=== PATIENT | female | born 1950 | race Caucasian/White ===

== ENCOUNTER 2019-04-19 08:50 | Day surgery (SDC) | payer OTHER ==
[~2019-04-19] VITALS: Ht 170.2 cm; Wt 81.3 kg
[~2019-04-19 08:50] MED LIST: CALCIT950 PO; MELATONIN
[2019-04-19] MEDS ORDERED: ASCO500 (09:04)
[2019-04-19] MEDS ORDERED: TOCO1000 (09:04)
[2019-04-19] MEDS ORDERED: ASPI81CH (09:05)
[2019-04-19] MEDS ORDERED: Calicum 500+D1 EACH PO (09:08)
--- NOTE | 2019-04-19 09:19 | NUR ---
History, Chart, Medications and Allergies reviewed before start of procedure. Patient confirms NPO status and agrees with scheduled surgery. REPORTS TAKING ALL OF COLON PREP WITH CLEAR RESULTS. PATIENT LEFT BILATERAL HEARING AIDES AT HOME. Patient States Post-Procedure ride home has been arranged with her , Ayden.
--- NOTE | 2019-04-19 09:40 | NUR ---
04/19/19 0940 Kolby Keller History, Chart, Medications and Allergies reviewed before start of procedure.MONITOR INTACT WITH CONTINUOUS PULSE OXIMETRY AND INTERMITTENT BP.3-LEAD EKG REVIEWED WITH PHYSICIAN PRIOR TO START OF PROCEDURE.O2 VIA N/C INTACT THROUGHOUT SEDATION/PROCEDURE. Patient confirms NPO status and agrees with scheduled surgery.PATIENT DETERMINED TO BE ASA APPROPRIATE FOR PROPOFOL SEDATION PRIOR TO START OF PROCEDURE BY DR. PHILLIPS.
--- NOTE | 2019-04-19 10:25 | NUR ---
RECEIVED REPORT FROM ENDO RN (YANNICK). PT IS AWAKE. AT BEDSIDE. VSS.
--- NOTE | 2019-04-19 10:33 | NUR ---
DR PHILLIPS CAME AND SPOKE TO PT. PT SITTING UP AND DRINKING WATER.
--- NOTE | 2019-04-19 10:54 | NUR ---
PT DRESSED AND HAS ALL PERSONAL BELONGINGS. Discharged via wheelchair to private car for ride home.
== END 2019-04-19 22:44 | disposition home or self-care (01) ==
LOC: ORSCMMR 08:50 → ORD 10:00 → ORSCMMR 10:00
PROVIDERS: Internal Medicine Gastroenterology
PROC: 0DBN8ZX Excision of Sigmoid Colon, Via Natural or Artificial Opening Endoscopic, Diagnostic (ICD-10-PCS; principal; 2019-04-19 10:00)
DX: R10.32 Left lower quadrant pain (principal); Z86.010 Personal history of colon polyps; K63.5 Polyp of colon; K57.30 Diverticulosis of large intestine without perforation or abscess without bleeding; E78.00 Pure hypercholesterolemia, unspecified; Z79.82 Long term (current) use of aspirin
CPT/HCPCS: 88305; J2704; J7120

== ENCOUNTER → 2023-07-18 | Outpatient (CLI) | payer OTHER ==
[~2023-07-18] MED LIST changes: +ASCO500; +ASPI81CH; +Aspir 8181 MG PO; +CALCIUM 600 +1 EA11 PO; +Calicum 500+D1 EACH PO; +ERGO400 PO; +FURO40 PO; +IRON BISGLYCINA28 MG PO; +K-TAB ER20 ME1 PO; +LISI5 PO; +ROSU10TA PO; +TOCO1000
[2023-07-18 20:56] LABS: Adenovirus F 40/41 Not Detected (NOT DETECT); Astrovirus Not Detected (NOT DETECT); Campylobacter Sp Not Detected (NOT DETECT); Cryptosporidium Not Detected (NOT DETECT); Cyclospora Cayetanensis Not Detected (NOT DETECT); E. Coli O157 Not Detected (NOT DETECT); Entamoeba Histolytica Not Detected (NOT DETECT); Enteroaggregative E. coli-EAEC Not Detected (NOT DETECT); Enteropathogenic E. coli-EPEC Not Detected (NOT DETECT); Enterotoxigenic E. coli-ETEC Not Detected (NOT DETECT); Giardia Lamblia Not Detected (NOT DETECT); Norovirus GI/GII Not Detected (NOT DETECT); Plesiomonas Shigelloides Not Detected (NOT DETECT); Rotavirus A Not Detected (NOT DETECT); Salmonella Sp Not Detected (NOT DETECT); Sapovirus Not Detected (NOT DETECT); Shiga Toxin-prod E. coli-STEC Not Detected (NOT DETECT); Shigella/Enteroin E. coli-EIEC Not Detected (NOT DETECT); Vibrio Cholerae Not Detected (NOT DETECT); Vibrio Sp Not Detected (NOT DETECT); Yersinia Enterocolitica Not Detected (NOT DETECT)
== END ==
LOC: LAB 17:06 → LAB SHORT 17:06
PROVIDERS: Physician Assistant
DX: R19.7 Diarrhea, unspecified (principal)
CPT/HCPCS: 87507

== ENCOUNTER 2023-08-26 08:52 | Day surgery (SDC) | payer OTHER ==
[2023-08-26] VITALS (23 sets, daily range): BP systolic 121–160; BP diastolic 55–83
[~2023-08-26] VITALS: Ht 167.6 cm; Wt 69.5 kg
--- NOTE | 2023-08-26 09:58 | NUR ---
History, Chart, Medications and Allergies reviewed before start of procedure. Patient up to Ambulate independently. Gait steady. Pre-Op teaching done. Pt verbalizes understanding. Patient confirms NPO status and agrees with scheduled surgery. Patient states colon prep results light yellow, translucent. Patient States Post-Procedure ride home has been arranged.
--- NOTE | 2023-08-26 10:53 | NUR ---
08/26/[address] HISTORY, CHART, MEDICATIONS AND ALLERGIES REVIEWED BEFORE START OF PROCEDURE. PATIENT CONFIRMS NPO STATUS AND AGREES WITH SCHEDULED PROCEDURE. 3-LEAD EKG REVIEWED WITH PHYSICIAN PRIOR TO START OF PROCEDURE. MONITOR INTACT WITH CONTINUOUS PULSE OXIMETRY,CAPNOGRAPHY, 3-LEAD EKG, INTERMITTENT BP. SUPPLEMENTAL O2 TO BE TITRATED THROUGHOUT PROCEDURE TO MAINTAIN O2 SATURATION ABOVE 90%. PATIENT DETERMINED TO BE ASA APPROPRIATE FOR PROPOFOL SEDATION PRIOR TO START OF PROCEDURE BY DR. PHILLIPS. MALLAMPATI CLASS 1 AIRWAY: COMPLETE VISULATIZATION OF THE SOFT PALATE.
--- NOTE | 2023-08-26 11:35 | NUR ---
PT TO DAY SURGERY STEP DOWN FROM COLONOSCOPY. PT IS AWAKE, ORIENTED AND ABLE TO MOVE SELF IN BED. DENIES PAIN. VSS. REQUESTING PO FLUIDS.
--- NOTE | 2023-08-26 11:43 | NUR ---
TOLERATING PO FLUIDS WELL
--- NOTE | 2023-08-26 11:54 | NUR ---
Discharge instructions reviewed with patient. Patient verbalizes understanding. Copy given to patient to take home. Patient States Post-Procedure ride home has been arranged.
--- NOTE | 2023-08-26 12:05 | NUR ---
Patient up to Ambulate independently. Gait steady.
--- NOTE | 2023-08-26 12:11 | NUR ---
Discharged via wheelchair to private car for ride home.
== END 2023-08-26 12:10 | disposition home or self-care (01) ==
LOC: ORSCMMR 08:52 → ORD 10:00 → ORSCMMR 12:10
PROVIDERS: Internal Medicine Gastroenterology
PROC: 0DBN8ZX Excision of Sigmoid Colon, Via Natural or Artificial Opening Endoscopic, Diagnostic (ICD-10-PCS; principal; 2023-08-26 10:00)
PROC: 0DBK8ZX Excision of Ascending Colon, Via Natural or Artificial Opening Endoscopic, Diagnostic (ICD-10-PCS; principal; 2023-08-26 10:00)
DX: R93.5 Abnormal findings on diagnostic imaging of other abdominal regions, including retroperitoneum (principal); R10.32 Left lower quadrant pain; K63.5 Polyp of colon; E78.00 Pure hypercholesterolemia, unspecified; M62.89 Other specified disorders of muscle; Z79.82 Long term (current) use of aspirin
CPT/HCPCS: 82947; 88305; J2704; J7120

== ENCOUNTER 2024-09-09 07:38 | Day surgery (SDC) | payer OTHER ==
[~2024-09-09] VITALS: Ht 167.6 cm; Wt 77.7 kg
[~2024-09-09 07:38] MED LIST changes: +Balanced Salt Epinephrine Irrigation Solution 500 mL IR SCH; +Lidocaine HCl/Pf 1% 5 ML VIAL XX SCH; +Moxifloxacin HCL 0.5 MG/0.1 ML 0.4MLSYR RIGHTEYE SCH; +PHENYLEPHRINE\\TROPICAMIDE\\TETRACAINE OPHTHALMIC DILATING SOLN RIGHTEYE PRN; +Povidone-Iodine 450 DROP/30 ML Solution RIGHTEYE SCH; +Triamcinolone Inj Susp 40 MG / ML 1ML Vial INJ SCH; +Triamcinolone Inj Susp 40 MG / ML 1ML Vial ONE
[2024-09-09] MEDS ORDERED: Diazepam 2 MG Tab ONE (08:34)
[2024-09-09] MEDS ORDERED: Diazepam 5 MG Tab ONE (08:35)
--- NOTE | 2024-09-09 08:59 | NUR ---
09/09/24 0859 Audrey Fung 0855: ANXIETY LEVEL 09/20 0855: 7 MG PO VALIUM GIVEN PER ORDERS. PER PATIENT SHE DID NOT RECEIVE ANY RX FROM DR LEYVA'S OFFICE FOR VALIUM AND HAS NOT TAKEN ANY VALIUM TODAY.
[2024-09-09 10:00] VITALS: BP 130/67
--- NOTE | 2024-09-09 10:26 | NUR ---
09/09/24 1026 Lorie Elmore 1022: D/C INSTRUCTIONS GIVEN TO PT, UNDERSTANDING VERBALIZED. PT HAS ALL BELONGINGS W/ HER. PT TRANSFERRED FROM WC TO VEHICLE W/ MIN ASSIST FROM . NO VISIBLE SIGNS OF DISTRESS NOTED.
[2024-09-09] MEDS ORDERED: Tetracaine HCl/Pf 0.5% Opth Soln 4 ml XX ONE (18:46)
[2024-09-09] MEDS ORDERED: Povidone-Iodine 450 DROP/30 ML Solution XX ONE (18:46)
== END 2024-09-09 10:22 | disposition home or self-care (01) ==
LOC: ORSCSDS 07:38
PROVIDERS: Ophthalmology
PROC: 08RJ3JZ Replacement of Right Lens with Synthetic Substitute, Percutaneous Approach (ICD-10-PCS; principal; 2024-09-09 09:30)
DX: H25.813 Combined forms of age-related cataract, bilateral (principal); I10 Essential (primary) hypertension; E78.5 Hyperlipidemia, unspecified; Z79.899 Other long term (current) drug therapy
CPT/HCPCS: A9270; J3301; V2632